=== PATIENT | female | born 1965 | race Caucasian/White ===

== ENCOUNTER 2016-07-16 15:39 | Emergency (ER) | payer BC ==
[~2016-07-16] VITALS: Ht 172.7 cm; Wt 55.5 kg
[~2016-07-16 15:39] MED LIST: THYR15TA PO
[2016-07-16 15:43] VITALS: TEMP 36.5; Ht 172.7 cm; Wt 55.5 kg
--- NOTE | 2016-07-16 16:12 | DIAGNOSTIC IMAGING REPORT ---
LEFT THUMB 3 VIEWS CLINICAL HISTORY: Left thumb pain status post trauma COMPARISON: None. DISCUSSION: No fractures are visualized. No radiopaque foreign bodies are evident. IMPRESSION: 1. No fractures identified 2. No foreign bodies are visualized Electronically signed by: Flaco Valverde M.D. 07/16/2016 4:10 PM Dictated Date/Time: 07/16/2016 4:10 PM
[2016-07-16] MEDS ORDERED: XYLOCAINE 1%/SOD BICARB 20 ML VIAL INFIL ONE (16:30)
[2016-07-16] MEDS ORDERED: THY/30 PO (16:32)
[2016-07-16] MEDS ORDERED: AMOX875T3 PO (16:32)
[2016-07-16] MEDS ORDERED: BCPILLS PO (16:32)
[2016-07-16 17:37] VITALS: BP 100/78; PULSE 64; O2SAT 100
--- NOTE | 2016-07-16 18:56 | EMERGENCY ROOM VISIT NOTE ---
ED Visit Note First contact with patient: 16:09 CHIEF COMPLAINT: Finger laceration HISTORY OF PRESENT ILLNESS: This 50-year-old female patient presents to the emergency department after cutting the left first finger with a razor blade at home. The patient states that she was trying to repair a lamp, and was using the razor blade to strep the wiring so that it could be replaced. The blade slipped while doing this, causing the injury. The bleeding has stopped. Denies weakness or numbness of the finger. The patient has full range of motion of the fingers. The patient rates the pain as dull and 6/10. The patient denies any other injuries. The patient's tetanus shot is not up to date. REVIEW OF SYSTEMS: A 6 system review of systems was completed with positives and pertinent negatives listed in the HPI. ALLERGIES: See EMR MEDICATIONS: No chronic medications PMH: Otherwise healthy SOCIAL HISTORY: Employed and lives locally PHYSICAL EXAM: Vital Signs: Reviewed Nurse's notes, vital signs stable. GENERAL : White female, in no acute distress, well developed, well nourished. SKIN: There is a 3.0 cm long laceration on the lateral aspect of the left first finger. The edges gape apart with traction. There is no foreign material in the wound and it looks clean. There is no significant bleeding. No deep structures such as tendons, bones, or significant blood vessels are seen in the base of the wound. Extension and flexion of the finger is full and strong. Full range of motion of the wrist and other fingers. Capillary refill less than 2 seconds. Normal sensation to light and sharp touch. EMERGENCY DEPARTMENT COURSE: I examined the patient. Verbal consent was obtained to perform the procedure. Using sterile technique the wound was cleansed with Betadine. 3 ml of 1% buffered lidocaine was used to perform a digital block to anesthetize the patient. The area was sterilely draped. Once the patient was anesthetized, the wound was copiously irrigated under pressure with sterile saline. The wound was explored and there were no deep structures injured. The laceration was repaired using 4 simple interrupted 5-0 nylon sutures. The patient tolerated the procedure well. Hemostasis was achieved. The area was cleaned with sterile saline and dressed with bacitracin ointment and bandage. The patient was given a tetanus booster. The patient was discharged home in good condition. DIAGNOSIS: Finger laceration Problem List Medical Problems: (1) Asthma Status: Chronic (2) In vitro fertilization Status: Resolved Current/Historical Medications Scheduled Amoxicillin (Amoxil), 875 MG PO BID Control Pills ( Control Pills), 1 TAB PO DAILY Thyroid (Ozan Thyroid), 30 MG PO DAILY Allergies Coded Allergies: Cortisone (Verified Allergy, Intermediate, Rapid heart rate and shortness of breath, 07/16/16) Pseudoephedrine (Unverified Allergy, Mild, HEART RATE, 06/26/09) Diphenhydramine (Verified Adverse Reaction, Unknown, Rapid heart rate and shortness of breath., 06/13/13) Source, PT reports as adverse reaction. Oxycodone (Verified Adverse Reaction, Unknown, Rapid heart rate and shortness of breath., 06/13/13) Source, PT reports as adverse reaction. Vital Signs Date Time Temp Pulse Resp B/P Pulse Ox O2 Delivery O2 Flow Rate FiO2 07/16/16 17:37 64 12 100/78 100 07/16/16 15:43 36.5 78 16 109/68 97 Room Air Departure Information Impression Primary Impression: Finger laceration Dispostion Home / Self-Care Condition GOOD Forms HOME CARE DOCUMENTATION FORM, IMPORTANT VISIT INFORMATION Patient Instructions My [facility] Additional Instructions Keep wound clean and dry. Do not allow any crusting or dried blood to accumulate on sutures. If this occurs, use a mild soap/water on a Q-tip to clean the wound. Do not use Peroxide to clean the wound as this can delay healing Use an antibiotic ointment like Bacitracin for 3-4 days, then let wound dry. You may bathe and shower as normal, but DO NOT SOAK the wound. Suture removal in about 7-10 days with your Family Doctor or in the ER. Return sooner for any signs of infection, increasing redness, swelling, or drainage.
[2016-10-07] MEDS ORDERED: ASCA500 PO (11:03)
[2016-10-07] MEDS ORDERED: CYAN100T PO (11:03)
[2016-10-07] MEDS ORDERED: ZYZOL PO (11:03)
== END 2016-07-16 17:39 | disposition home or self-care (01) ==
LOC: C.EDB 15:41 → C.EDD 17:39
DX: S61.211A Laceration without foreign body of left index finger without damage to nail, initial encounter (principal); W26.8XXA Contact with other sharp object(s), not elsewhere classified, initial encounter; Y93.89 Activity, other specified; Y99.8 Other external cause status; Y92.009 Unspecified place in unspecified non-institutional (private) residence as the place of occurrence of the external cause; J45.909 Unspecified asthma, uncomplicated

== ENCOUNTER → 2016-08-22 | Outpatient (CLI) | payer BC ==
[~2016-08-22] MED LIST changes: +AMOX875T3 PO; +ASCA500 PO; +BCPILLS PO; +CYAN100T PO; +THY/30 PO; -THYR15TA PO; +ZYZOL PO
== END | disposition home or self-care (01) ==
LOC: C.RDSM 14:15
PROVIDERS: ATTEND Family Medicine
DX: M54.2 Cervicalgia (principal); M95.8 Other specified acquired deformities of musculoskeletal system; M54.6 Pain in thoracic spine

== ENCOUNTER → 2016-08-26 | Outpatient (CLI) | payer BC ==
--- NOTE | 2016-08-26 16:03 | DIAGNOSTIC IMAGING REPORT ---
MRI CERVICAL WITHOUT CONTRAST CLINICAL HISTORY: Neck pain. Wing scapula. TECHNIQUE: Sagittal and axial T1, T2 and STIR images were obtained. COMPARISON STUDY: No previous studies for comparison. There are no suspicious areas of marrow replacement. No intrinsic cervical cord lesions are visualized. C2-3: There is no evidence of disc bulge or focal herniation. There is no spinal or foraminal stenosis. C3-4: There is no evidence of disc bulge or focal herniation. There is no spinal or foraminal stenosis. C4-5: There are no disc bulges or focal herniations. There is no spinal or foraminal stenosis. C5-6 :There is disc desiccation with degenerative endplate signal change. There is a circumferential disc bulge present. There is no significant spinal stenosis. There is mild to moderate right-sided foraminal narrowing. C6-7: There is no evidence of disc bulge or focal herniation. There is no evidence of spinal or foraminal stenosis. C7-T1: There is no evidence of disc bulge or focal herniation. There is no evidence of spinal or foraminal stenosis. There is a slight reversal of the normal cervical lordosis IMPRESSION: 1. Reversal of the normal cervical lordosis 2. No intrinsic cord lesions identified 3. Degenerative changes at the C5-6 level. Mild to moderate right-sided foraminal narrowing. Electronically signed by: Flaco Valverde M.D. 08/26/2016 4:01 PM Dictated Date/Time: 08/26/2016 3:58 PM
--- NOTE | 2016-08-26 16:22 | DIAGNOSTIC IMAGING REPORT ---
THORACIC SPINE MRI HISTORY: CERVICALGIA, PAIN IN THORACIC SPINE TECHNIQUE: Multiplanar multisequence MRI of the thoracic spine was performed without the use of contrast. COMPARISON: Thoracic spine radiograph 08/22/2016. FINDINGS: Alignment is intact. No fracture or subluxation. Small vertebral body hemangiomas at T10 and T12. Otherwise, normal marrow signal intensity within the visualized osseous structures. Paraspinal soft tissues are unremarkable. The thoracic spinal cord is normal in course, caliber, and signal intensity. Mild disc space narrowing throughout the majority of the thoracic spine with scattered small disc bulges and a few scattered tiny disc protrusions within the mid to lower thoracic spine. However, there is no significant central canal or neural foraminal narrowing. IMPRESSION: 1. No fracture or subluxation within the thoracic spine. 2. Mild degenerative disc disease within the thoracic spine without significant central canal or neural foraminal narrowing. Electronically signed by: Ran Cochran M.D. 08/26/2016 4:20 PM Dictated Date/Time: 08/26/2016 4:15 PM
== END | disposition home or self-care (01) ==
LOC: C.MRIBC 14:59
PROVIDERS: ATTEND Family Medicine
DX: M47.812 Spondylosis without myelopathy or radiculopathy, cervical region (principal); M51.34 Other intervertebral disc degeneration, thoracic region; M95.8 Other specified acquired deformities of musculoskeletal system

== ENCOUNTER → 2016-11-09 | Outpatient (CLI) | payer BC ==
[~2016-11-09] MED LIST changes: -AMOX875T3 PO
--- NOTE | 2016-11-09 13:34 | DIAGNOSTIC IMAGING REPORT ---
RIGHT WRIST MIN 3 VIEWS ROUTINE CLINICAL HISTORY: RIGHT WRIST PAIN Right pain COMPARISON: None. DISCUSSION: The bones and joint spaces appear intact. There is no evidence of fracture, dislocation or bony disease. There is no evidence for soft tissue swelling. IMPRESSION: Negative study. Electronically signed by: Alfredo De Anda M.D. 11/09/2016 1:32 PM Dictated Date/Time: 11/09/2016 1:32 PM
== END | disposition home or self-care (01) ==
LOC: C.RDSM 16:13
PROVIDERS: ATTEND Physician Assistant
DX: M25.531 Pain in right wrist (principal)

== ENCOUNTER → 2016-12-06 | Outpatient (CLI) | payer BC ==
--- NOTE | 2016-12-06 15:58 | MAMMOGRAPHY REPORT ---
BILATERAL DIGITAL SCREENING MAMMOGRAM TOMOSYNTHESIS WITH CAD: 12/06/2016 CLINICAL HISTORY: Routine screening. Patient has no complaints. TECHNIQUE: Breast tomosynthesis in addition to standard 2D mammography was performed. Current study was also evaluated with a Computer Aided Detection (CAD) system. COMPARISON: Comparison is made to exams dated: 03/01/2016 ultrasound, 03/01/2016 mammogram - [facility], 05/25/2015 mammogram, 03/14/2012 mammogram - [facility], 2013 ultrasound, and 04/20/2012 mammogram - [facility]. BREAST COMPOSITION: The tissue of both breasts is extremely dense, which lowers the sensitivity of m ammography. FINDINGS: The parenchymal pattern is similar to prior exams, including a stable nodular asymmetry in the superior posterior left breast on the MLO view. No new suspicious mass, architectural distortion or cluster of microcalcifications is seen. IMPRESSION: ACR BI-RADS CATEGORY 1: NEGATIVE There is no mammographic evidence of malignancy. A 1 year screening mammogram is recommended. The pa tient will receive written notification of the results. Approximately 10% of breast cancers are not detected with mammography. A negative mammographic report should not delay biopsy if a clinically suggestive mass is present. Odalys Jin M.D. ay/:12/06/2016 14:50:51 Chief Engineer Research: Yanci RODRIGUEZ(R)(M), [facility] letter sent: Normal 1/2 BI-RADS Code: ACR BI-RADS Category 1: Negative
== END | disposition home or self-care (01) ==
LOC: C.MAMM 14:24
PROVIDERS: ATTEND Family Medicine
DX: Z12.31 Encounter for screening mammogram for malignant neoplasm of breast (principal)

== ENCOUNTER → 2017-05-05 | Outpatient (CLI) | payer BC ==
--- NOTE | 2017-05-08 08:00 | MAMMOGRAPHY REPORT ---
UNILATERAL LEFT DIGITAL DIAGNOSTIC MAMMOGRAM TOMOSYNTHESIS WITH CAD AND TARGETED LEFT ULTRASOUND: CLINICAL HISTORY: The patient reports swelling and tenderness in her left upper outer quadrant for ap proximately 2-3 weeks. She has had similar symptoms in the same area approximately one year ago for which she was evaluated. The symptoms resolved and have now returned. TECHNIQUE: Breast tomosynthesis in addition to standard 2D mammography was performed. Current study was also evaluated with a Computer Aided Detection (CAD) system. Left CC and MLO 2-D and tomosynthes is images were obtained. COMPARISON: Comparison is made to exams dated: 05/05/2017 ultrasound, 12/06/2016 mammogram, 6 ultrasound, 03/01/2016 mammogram - [facility], 05/25/2015 mammogram, and 01/30/2014 ultrasound. BREAST COMPOSITION: The tissue of the left breast is extremely dense, which lowers the sensitivity o f mammography. FINDINGS: A triangle marker hernandez the site of the palpable abnormality in the left upper outer quadra nt. There are no suspicious masses or other suspicious mammographic abnormalities noted in this una on. The remainder of the left breast demonstrates no suspicious masses, calcifications, or areas of architectural distortion noted in either breast. There is an 8 mm asymmetry seen within the left med ial breast on the cc view, which has the appearance of normal overlapping fibroglandular tissue on th e tomosynthesis images, however, ultrasound was performed. Targeted ultrasound was performed of the area of the palpable swelling and pain pointed out by the pa tient involving a large area of the upper outer quadrant. Sonographically normal tissue is seen in t his region, without evidence of a mass or other suspicious sonographic abnormality. Ultrasound was a lso performed of the left medial breast in the region of the mammographic asymmetry, which also shows sonographically normal tissue without evidence of a mass or other suspicious sonographic abnormality . Given that no corresponding sonographic abnormality was seen, the asymmetry is benign and compatib le with normal fibroglandular tissue. IMPRESSION: ACR BI-RADS CATEGORY 2: BENIGN, TARGETED ULTRASOUND ACR BI-RADS CATEGORY 2: BENIGN No suspicious mammographic or sonographic abnormality at the site of swelling and tenderness in the l eft upper outer quadrant pointed out by the patient. There is no mammographic or targeted sonographi c evidence of malignancy. Recommend clinical follow-up for left breast symptoms, and recommend routi ne bilateral screening mammograms which are due November 2017. The patient has been verbally notified of the results. Approximately 10% of breast cancers are not detected with mammography. A negative mammographic report should not delay biopsy if a clinically suggestive mass is present. Lizette Mccloud M.D. ah/:05/05/2017 13:40:38 Oncology Patient Navigator: Danielle RODRIGUEZ(Earnest)(M), [facility] letter sent: Normal 1/2 BI-RADS Code: ACR BI-RADS Category 2: Benign Ultrasound BI-RADS: ACR BI-RADS Category 2: Benign
== END | disposition home or self-care (01) ==
LOC: C.MAMM 12:57
PROVIDERS: ATTEND Family Medicine
DX: N63.21 Unspecified lump in the left breast, upper outer quadrant (principal)

== ENCOUNTER → 2017-07-26 | Outpatient (CLI) | payer OTHER ==
--- NOTE | 2017-07-26 12:39 | DIAGNOSTIC IMAGING REPORT ---
CHEST 2 VIEWS ROUTINE CLINICAL HISTORY: J32.9, R07.89, R05 PERSISTENT COUGH, SHORTNESS OF BREATH. CHEST TIGHTNESS COMPARISON STUDY: The 2014 FINDINGS: The cardiac and mediastinal contours are normal. There is no evidence of focal pulmonary consolidation. There is no evidence of failure. No pleural effusions are visualized.[ IMPRESSION: No active disease in the chest. Electronically signed by: Flaco Valverde M.D. 07/26/2017 12:37 PM Dictated Date/Time: 07/26/2017 12:37 PM
== END | disposition home or self-care (01) ==
LOC: C.LAB1850 12:08
PROVIDERS: ATTEND Student in an Organized Health Care Education/Training Program
DX: J32.9 Chronic sinusitis, unspecified (principal); R07.89 Other chest pain; R05 Cough

== ENCOUNTER → 2017-12-13 | Outpatient (CLI) | payer OTHER ==
--- NOTE | 2017-12-14 07:58 | MAMMOGRAPHY REPORT ---
BILATERAL DIGITAL SCREENING MAMMOGRAM TOMOSYNTHESIS WITH CAD: 12/13/2017 CLINICAL HISTORY: Routine screening. Patient has no complaints. TECHNIQUE: The study was acquired using full field digital technology and interpreted from soft copy. Breast tomosynthesis in addition to standard 2D mammography was performed. Current study was also ev aluated with a Computer Aided Detection (CAD) system. COMPARISON: Comparison is made to exams dated: 05/05/2017 ultrasound, 12/06/2016 mammogram, 6 ultrasound, 03/01/2016 mammogram - [facility], 05/25/2015 mammogram, and 01/30/2014 ultrasound. BREAST COMPOSITION: The tissue of both breasts is extremely dense, which lowers the sensitivity of ma mmography. FINDINGS: The parenchymal pattern is unchanged. No developing mass, architectural distortion or cluster of susp icious microcalcifications is seen in either breast. IMPRESSION: ACR BI-RADS CATEGORY 2: BENIGN There is no mammographic evidence of malignancy. A 1 year screening mammogram is recommended.( 019) The patient will receive written notification of the results. Some breast cancers are not detected with mammography. A negative mammographic report should not theresa y biopsy if a clinically suggestive mass is present. Odalys Jin M.D. ay/:12/13/2017 13:32:59 Desk Assistant: RT Cece(Earnest)(M), [facility] letter sent: Normal 1/2 BI-RADS Code: ACR BI-RADS Category 2: Benign
== END | disposition home or self-care (01) ==
LOC: C.MAMM 11:13
PROVIDERS: ATTEND Family Medicine
DX: Z12.31 Encounter for screening mammogram for malignant neoplasm of breast (principal)